=== PATIENT | female | born 1990 | race Caucasian/White ===

== ENCOUNTER 2018-02-04 21:22 | Emergency (ER) | payer OTHER ==
[2018-02-04 21:31] VITALS: BP 109/73
[2018-02-04] MEDS ORDERED: Tetan/Diph/Pertus SYR(Tdap)* 0.5 ML SYR(BOOSTRIX) use SYR IM ONE (21:39)
[2018-02-04] MEDS: Mupirocin 2% OINT* TUBE TOPICAL ONE ×2 (21:44→22:04)
--- NOTE | 2018-02-04 21:46 | UC ---
HPI BURN - HPI Summary HPI Summary: 27-year-old woman comes to clinic today with a chief complaint of burn to her right forearm. This happened at work just prior to arrival today. They did clean it and put some burn ointment on. Patient does not believe she is up-to- date on her tetanus. Initially the burn hurt quite a bit but by covering it did decrease the pain. No other injury. - History of Current Complaint Chief Complaint: UCBurn Stated Complaint: BURN ON ARM Time Seen by Provider: 02/04/18 21:33 Hx Last Menstrual Period: 01/27/18 Pain Intensity: 3 - Allergy/Home Medications Allergies/Adverse Reactions: Allergies Allergy/AdvReac Type Severity Reaction Status Date / Time peanut Allergy Itching Verified 02/04/18 21:30 soy Allergy Swelling Verified 02/04/18 21:30 Of Face,Lips,& Throat Home Medications: Home Medications NK [No Home Medications Reported] 02/04/18 [History Confirmed 02/04/18] PMH/Surg Hx/FS Hx/Imm Hx Previously Healthy: Yes - Surgical History Surgical History: Yes Surgery Procedure, Year, and Place: TONSILLECTOMY 2004 - Family History Known Family History: Positive: Non-Contributory - Social History Alcohol Use: Occasionally Substance Use Type: None Smoking Status (MU): Never Smoked Tobacco Review of Systems All Other Systems Reviewed And Are Negative: Yes Constitutional: Positive: Negative Skin: Positive: Other - SEE HPI Eyes: Positive: Negative ENT: Positive: Negative Respiratory: Positive: Negative Cardiovascular: Positive: Negative Gastrointestinal: Positive: Negative Motor: Positive: Negative Neurovascular: Positive: Negative Musculoskeletal: Positive: Negative Neurological: Positive: Negative Psychological: Positive: Negative Is Patient Immunocompromised?: No Physical Exam Triage Information Reviewed: Yes Appearance: Well-Appearing, No Pain Distress, Well-Nourished Vital Signs: Initial Vital Signs Temp 97.9 F 02/04/18 21:27 Pulse 66 02/04/18 21:27 Resp 16 02/04/18 21:27 BP 109/73 02/04/18 21:27 Pulse Ox 100 02/04/18 21:27 Vital Signs Reviewed: Yes Eye Exam: Normal Eyes: Positive: Conjunctiva Clear Neck exam: Normal Neck: Positive: Supple Respiratory: Positive: No respiratory distress Musculoskeletal Exam: Normal Musculoskeletal: Positive: Strength Intact, ROM Intact Neurological Exam: Normal Neurological: Positive: Alert, Muscle Tone Normal Psychological Exam: Normal Psychological: Positive: Age Appropriate Behavior Skin: Positive: Other - On the right forearm there is a burn that is 2 CM wide and 6 cm long. There are broken blisters on it. There is a second parallel burned that's 3 Cm long and 1 cm wide also with broken blister. Burn Calculation - Mucarabones Formula for Fluid Resuscitation Weight: 130 lb 24 -Hour Fluid Replacement: 0.0 Course/Dx Burn - Course Course Of Treatment: Patient was given her T tap here in clinic. Nonstick dressing was applied after cleaning the wound and placing mupirocin. She will change the dressing once to twice a day and changing the antibiotic ointment and follow-up with her doctor. - Diagnoses Provider Diagnosis: Second degree burn of right arm Discharge - Sign-Out/Discharge Documenting (check all that apply): Patient Departure All imaging exams completed and their final reports reviewed: No Studies - Discharge Plan Condition: Stable Disposition: HOME Patient Education Materials: Second Degree Burn (ED) Referrals: Jerilyn Frost MD [Primary Care Provider] - Ez Higginbotham MD [Medical Doctor] - Additional Instructions: FOLLOW UP WITH YOUR DOCTOR IF NOT COMPLETELY IMPROVED. YOU WERE GIVEN A TDAP (TETANUS/DIPTHERIA) IMMUNIZATION TODAY. GET RECHECKED FOR ANY WORSENING OF YOUR CONDITION OR QUESTIONS OR CONCERNS. - Billing Disposition and Condition Condition: STABLE Disposition: Home
== END 2018-02-04 22:05 | disposition home or self-care (01) ==
LOC: UCEAST 21:22
DX: T22.211A Burn of second degree of right forearm, initial encounter (principal); T31.0 Burns involving less than 10% of body surface; X08.8XXA Exposure to other specified smoke, fire and flames, initial encounter; Y92.89 Other specified places as the place of occurrence of the external cause
CPT/HCPCS: 16020; 90471; 90715; 99212; G0463

== ENCOUNTER 2018-04-29 14:36 | Emergency (ER) | payer OTHER ==
--- NOTE | 2018-04-29 15:52 | UC ---
Headache HPI - HPI Summary HPI Summary: 27 yo female presents with headache. She tells me that over the last 4-5 days she has been having a frontal headache. She says that about 1 week ago she had fatigue, body aches, and a subjective fever - thinks she may have had the flu, but improved in 2-3 days. About 4-5 days ago she developed a frontal headache that is persisting. She has been taking ibuprofen with mild relief, but headache comes right back. Over the last 2-3 days she has been feeling a "tightness" in her anterior chest and feeling that her heart is "fluttering". She denies fever, chills, sore throat, sinus symptoms, cough, SOB, chest pain, abdominal pain, n/v, dysuria. Denies PMHx. - History Of Current Complaint Chief Complaint: UCGeneralIllness Stated Complaint: HEADACHE Time Seen by Provider: 04/29/18 15:52 Hx Obtained From: Patient Hx Last Menstrual Period: 04/04/18 Onset/Duration: Sudden Onset Initially Headache Was: Moderate Currently Pain Is: Moderate Pain Intensity: 7 Pain Scale Used: 0-10 Numeric - Allergies/Home Medications Allergies/Adverse Reactions: Allergies Allergy/AdvReac Type Severity Reaction Status Date / Time peanut Allergy Itching Verified 04/29/18 15:15 soy Allergy Swelling Verified 04/29/18 15:15 Of Face,Lips,& Throat PMH/Surg Hx/FS Hx/Imm Hx - Additional Past Medical History Additional PMH: None - Surgical History Surgical History: Yes Surgery Procedure, Year, and Place: TONSILLECTOMY 2004 - Family History Known Family History: Positive: None - Social History Lives: With Family Alcohol Use: Occasionally Substance Use Type: None Smoking Status (MU): Never Smoked Tobacco - Immunization History Most Recent Tetanus Shot: GIVEN 02/04/18 Review of Systems All Other Systems Reviewed And Are Negative: Yes Constitutional: Positive: Negative Skin: Positive: Negative Eyes: Positive: Negative ENT: Positive: Negative Respiratory: Positive: Negative Cardiovascular: Positive: Palpitations Gastrointestinal: Positive: Negative Genitourinary: Positive: Negative Neurovascular: Positive: Negative Musculoskeletal: Positive: Negative Neurological: Positive: Headache Psychological: Positive: Negative Physical Exam - Summary Physical Exam Summary: GENERAL: NAD. WDWN. No pain distress. SKIN: No rashes, sores, ulcers, masses, lesions. HEENT: Head: AT/NC. Eyes: PERRLA. EOM intact. Conjunctiva clear without inflammation or discharge. Ears: Hearing grossly normal. TMs intact, no bulging, erythema, or edema. No hemotympanum Nose: Nasal mucosa pink and moist. NTTP maxillary and frontal sinus. Throat: Posterior oropharynx without exudates, erythema, or tonsillar enlargement. Uvula midline. NECK: Supple. Nontender. FROM CHEST: CTAB. No r/r/w. No accessory muscle use. Breathing comfortably and in no distress. CV: RRR. 2/6 systolic murmur appreciated heard best at left 3rd/4th intercostal. Pulses intact. Brisk cap refill. ABDOMEN: Soft. NTTP. Bowel sounds present MSK: FROM in B/L UEs and LEs with symmetric strength. NEURO: A&Ox3. 3 word recall, remote, recent memory, ability to follow 2-step directions, and attention intact. CN: II: Peripheral walsh intact. Vision normal. III, IV, : EOMI. No nystagmus. PERRLA. V: Sensations intact and symmetric. Opens mouth and clenches teeth. VII: No facial asymmetry. Forehead wrinkles. Grins, shuts eyes, frowns, puffs cheeks. VIII: Hearing intact to finger rub. IX, X: Swallows and coughs. Uvula midline. XI: Shrugs shoulders. Turns head against resistance. XII: No tongue deviation [id number] are intact. Gait with normal base. Romberg: maintains balance, no pronator drift. Normal speech. No facial drooping. PSYCH: Age appropriate behavior. Triage Information Reviewed: Yes Vital Signs: Initial Vital Signs Temp 98.5 F 04/29/18 15:11 Pulse 82 04/29/18 15:11 Resp 18 04/29/18 15:11 BP 100/67 04/29/18 15:11 Pulse Ox 100 04/29/18 15:11 Laboratory Tests 04/29/18 04/29/18 04/29/18 16:02 16:04 16:20 POC Glucose (mg/dL) 89 POC Urine Color Light yellow POC Urine Clarity Clear POC Urine pH 5.5 POC Ur Specif [place] <= 1.005 L POC Urine Protein Negative POC Ur Glucose (UA) Negative POC Urine Ketones Negative POC Urine Blood Trace-intact A POC Urine Nitrite Negative POC Urine Bilirubin Negative POC Urine Urobilinogen 0.2 POC U Leukocyte Esteras Negative POC Ur Test Negative Vital Signs Reviewed: Yes Headache Course/Dx - Course Course Of Treatment: EKG 66bpm NSR. No ST changes as read by Dr. Hall. CXR : IMPRESSION: NO EVIDENCE FOR ACTIVE CARDIOPULMONARY DISEASE. CT brain: IMPRESSION: NO EVIDENCE FOR ACUTE INTRACRANIAL ABNORMALITY. I discussed with the pt that her workup here is normal. She was given toradol IM for her headache and advised to f/u with her PCP for further eval of her symptoms if they continue and for her heart murmur appreciated today. - Differential Dx/Diagnosis Provider Diagnosis: Headache, Heart murmur Discharge - Sign-Out/Discharge Documenting (check all that apply): Patient Departure All imaging exams completed and their final reports reviewed: Yes - Discharge Plan Condition: Stable Disposition: HOME Patient Education Materials: Acute Headache (DC) Referrals: Jerilyn Frost MD [Primary Care Provider] - As Soon As Possible Additional Instructions: If you develop a fever, shortness of breath, chest pain, new or worsening symptoms - please call your PCP or go to the ED. Your work up today was normal and I do not see a clear cause of your headaches. Please continue to take ibuprofen 600mg every 6-8hours for your headache and schedule a follow up appointment with your primary doctor for further evaluation of your symptoms. - Billing Disposition and Condition Condition: STABLE Disposition: Home
[2018-04-29 17:28] LABS: Influenza A Molecular NEGATIVE (Negative); Influenza B Molecular NEGATIVE (Negative)
[2018-04-29] MEDS ORDERED: Ketorolac INJ* 60 MG/2 ML VIAL IM ONE (17:35)
[2018-04-29 17:51] VITALS: BP 114/73
== END 2018-04-29 17:49 | disposition home or self-care (01) ==
LOC: UCEAST 14:36
DX: R51 Headache (principal); R01.1 Cardiac murmur, unspecified; M79.10 Myalgia, unspecified site; R50.9 Fever, unspecified; R53.83 Other fatigue; Z91.010 Allergy to peanuts; Z91.018 Allergy to other foods
CPT/HCPCS: 70450; 71046; 81003; 84702; 93005; 96372; 99212; G0463; J1885

== ENCOUNTER 2018-05-02 09:40 | Emergency (ER) | payer OTHER ==
[2018-05-02 10:00] VITALS: BP 108/67
--- NOTE | 2018-05-02 10:31 | UC ---
Shortness of Breath HPI - HPI Summary HPI Summary: Pt returning to urgent care after her 04/29 evaluation w/ continued sob and now has trouble sleeping b/c of sob. Feels she has to use pillows to make it better. symptoms eventually resolve and she is able to fall asleep. sob sometimes occur during the day. No pattern to it. She states she had a serious allergy to soy but she does not think she's been exposed, her partner has not eaten it at any point and they do not have it in the home. No new allergen exposures or animal exposure. she denies wheezing, n/v, dizziness but does complain of a dull HURLEY, fogginess. denies recent trip or travel. - History of Current Complaint Chief Complaint: UCRespiratory Stated Complaint: SOB Time Seen by Provider: 05/02/18 10:09 Hx Obtained From: Patient Hx Last Menstrual Period: 03/29/18 Onset/Duration: Gradual Onset Aggrevating Factors: Recumbent Position Associated Signs & Symptoms: Negative: Wheezing, Chills, Nasal Congestion, Dizzy Related History: Similar Episode - on 04/29 but feels its worse. - Allergy/Home Medications Allergies/Adverse Reactions: Allergies Allergy/AdvReac Type Severity Reaction Status Date / Time peanut Allergy Itching Verified 05/02/18 09:51 soy Allergy Swelling Verified 05/02/18 09:51 Of Face,Lips,& Throat PMH/Surg Hx/FS Hx/Imm Hx Previously Healthy: Yes - Surgical History Surgical History: Yes Surgery Procedure, Year, and Place: TONSILLECTOMY 2004 - Family History Known Family History: Positive: None, Non-Contributory - Social History Alcohol Use: Occasionally Substance Use Type: None Smoking Status (MU): Never Smoked Tobacco - Immunization History Most Recent Tetanus Shot: GIVEN 02/04/18 Review of Systems All Other Systems Reviewed And Are Negative: Yes Constitutional: Positive: Fatigue Skin: Positive: Negative ENT: Negative: Sinus Congestion Respiratory: Positive: Shortness Of Breath, Other - sob worse when she lays down so needs pillows.. Negative: Cough Gastrointestinal: Positive: Negative Musculoskeletal: Negative: Calf Tenderness, Edema, Myalgia Neurological: Positive: Headache Psychological: Negative: Anxious Physical Exam Triage Information Reviewed: Yes Appearance: Well-Appearing, No Pain Distress Vital Signs: Initial Vital Signs Temp 99 F 02/28/19 09:51 Pulse 82 05/02/18 09:51 Resp 16 05/02/18 09:51 BP 108/67 05/02/18 09:51 Pulse Ox 100 05/02/18 09:51 Vital Signs Reviewed: Yes ENT: Positive: Pharynx normal, TMs normal, Uvula midline Neck: Positive: Supple, Nontender, No Lymphadenopathy. Negative: Nuchal Rigidity Respiratory: Positive: Chest non-tender, Lungs clear Cardiovascular Exam: Normal Cardiovascular: Positive: No Murmur Musculoskeletal: Positive: Other: - No LE edema or calf tenderness bilat. Neurological: Positive: Alert Psychological: Positive: Age Appropriate Behavior Skin: Negative: Rashes Shortness of Breath Dx - Course Course Of Treatment: Intermittent and Worsening SOB now w/ PND since her UC visit from 04/29. Not assoc. w/ exertion and worse at night. No wheezing or allergen association. No recent travel. Unclear etiology given normal exam, unclear pattern of sob. We repeated CXR to observe any changes and this was NL. Of note Urine hcg neg. on 04/29. Vitals are unremarkable and on exam no cyanosis or signs of resp. distress. good exam otherwise. EKG from 04/29 and today showed no progression or changes. There may be an element of anxiety related to this. This will need to be continued to be w/u outpatient. Until then CBC to r/o anemia and BMP to check renal function and electrolytes. Have advised her to go to ED for any worsening symptoms. - Differential Dx/Diagnosis Provider Diagnosis: PND (paroxysmal nocturnal dyspnea), SOB (shortness of breath) Discharge - Sign-Out/Discharge Documenting (check all that apply): Patient Departure All imaging exams completed and their final reports reviewed: Yes - Discharge Plan Condition: Good Disposition: HOME Patient Education Materials: Shortness of Breath (ED) Forms: *Work Release Referrals: Jerilyn Frost MD [Primary Care Provider] - Additional Instructions: The results of your blood test to show if you are anemic will be done tomorrow. Please call us to get these. Either way please make appointment with your primary care provider to continue the work up for your symptoms. Today your Chest Xray was again normal, as well as your EKG. It is unclear what is causing you symptoms but please go to ED if you have a sudden episode of Shortness of Breath. - Billing Disposition and Condition Condition: GOOD Disposition: Home - Attestation Statements Provider Attestation: I was available for consult. This patient was seen by the AMANDA. The patient was not presented to, seen by, or examined by me. -Alberto
[2018-05-02 13:31] LABS: ABS Basophils 0.1 10^3/ul (0-0.2); ABS Eosinophils 0.1 10^3/ul (0-0.6); ABS Monocytes 0.5 10^3/ul (0-0.8); ABS Neutrophils 3.2 10^3/ul (1.5-7.7); ABS Nucleated RBC 0 10^3/ul; Eosinophil % 1.5 %; Hematocrit 38 % (35-47); Hemoglobin 12.9 g/dl (12.0-16.0); Lymphocyte % 34.1 %; Mean Corpuscular HGB Conc 34 g/dl (31-36); Mean Corpuscular Hemoglobin 32 pg (27-31); Mean Corpuscular Volume 94 fL (80-97); Mean Platelet Volume 8.4 fL (7.4-10.4); Nucleated Red Blood Cells % 0; Platelet Count 256 10^3/ul (150-450); Red Blood Count 4.08 10^6/ul (4.00-5.40); Red Cell Distribution Width 12 % (10.5-15); White Blood Count 5.8 10^3/ul (3.5-10.8)
[2018-05-02 13:47] LABS: Calcium 9.9 mg/dL (8.6-10.3); Potassium 3.9 mmol/L (3.5-5.0)
[2018-05-02 13:53] LABS: BUN/Creatinine Ratio 10.6 (8-20); EGFR Non-African American 108.3 (>60)
== END 2018-05-02 11:10 | disposition home or self-care (01) ==
LOC: UCEAST 09:40
DX: R06.02 Shortness of breath (principal); R06.09 Other forms of dyspnea; Z91.010 Allergy to peanuts; Z91.018 Allergy to other foods
CPT/HCPCS: 36415; 71046; 80048; 85025; 93005; 99211; G0463

== ENCOUNTER 2018-06-11 08:00 | Emergency (ER) | payer OTHER ==
[2018-06-11 08:10] VITALS: BP 121/82
[2018-06-11] MEDS ORDERED: Ondansetron ODT TAB* 4 MG PO ONE (08:27)
[2018-06-11] MEDS ORDERED: Ketorolac INJ* 60 MG/2 ML VIAL IM ONE (08:29)
--- NOTE | 2018-06-11 08:48 | UC ---
Abdominal Pain Female HPI - HPI Summary HPI Summary: 1 WEEK OF CONSTANT NAUSEA. NO VOMITING OR DIARRHEA. NO FEVER. HAS ALSO HAD A CONSTANT FRONTAL HURLEY. NO VISUAL DISTURBANCES. IS NOT NORMALLY A HURLEY PERSON. IBUPROFEN NOT HELPING. STATES SHE HAS BEEN HYDRATING WELL. NO URINARY SX. DENIES ANY CHANCE OF . - History of Current Complaint Chief Complaint: UCGeneralIllness Stated Complaint: HEADACHE FATIGUE NAUSEA Time Seen by Provider: 06/11/18 08:11 Hx Obtained From: Patient Hx Last Menstrual Period: 06/07/18 Onset/Duration: Gradual Onset, Lasting Days, Still Present Timing: Constant Severity Initially: Moderate Severity Currently: Moderate Pain Intensity: 4 Pain Scale Used: 0-10 Numeric Location: Diffuse Radiates: No Aggravating Factor(s): Nothing Alleviating Factor(s): Nothing Associated Signs and Symptoms: Positive: Nausea. Negative: Fever, Urinary Symptoms, Vomiting, Diarrhea Allergies/Adverse Reactions: Allergies Allergy/AdvReac Type Severity Reaction Status Date / Time peanut Allergy Itching Verified 06/11/18 08:09 soy Allergy Swelling Verified 06/11/18 08:09 Of Face,Lips,& Throat PMH/Surg Hx/FS Hx/Imm Hx Previously Healthy: Yes - Surgical History Surgical History: Yes Surgery Procedure, Year, and Place: TONSILLECTOMY 2004 - Family History Known Family History: Positive: None, Non-Contributory - Social History Alcohol Use: Occasionally Substance Use Type: None Smoking Status (MU): Never Smoked Tobacco - Immunization History Most Recent Tetanus Shot: GIVEN 02/04/18 Review of Systems All Other Systems Reviewed And Are Negative: Yes Constitutional: Positive: Negative Respiratory: Positive: Negative Cardiovascular: Positive: Negative Gastrointestinal: Positive: Nausea. Negative: Vomiting, Diarrhea Neurological: Positive: Headache Physical Exam Triage Information Reviewed: Yes Appearance: Well-Appearing, No Pain Distress, Well-Nourished Vital Signs: Initial Vital Signs Temp 97.8 F 06/11/18 08:06 Pulse 74 06/11/18 08:06 Resp 18 06/11/18 08:06 BP 121/82 06/11/18 08:06 Pulse Ox 100 06/11/18 08:06 Laboratory Tests 06/11/18 06/11/18 08:33 08:36 POC Urine Color Light yellow POC Urine Clarity Clear POC Urine pH 6.5 POC Ur Specif [place] 1.015 POC Urine Protein Negative POC Ur Glucose (UA) Negative POC Urine Ketones Negative POC Urine Blood 1+ A POC Urine Nitrite Negative POC Urine Bilirubin Negative POC Urine Urobilinogen 0.2 POC U Leukocyte Esteras Trace A POC Ur Test Negative Vital Signs Reviewed: Yes Eyes: Positive: Conjunctiva Clear ENT: Positive: Hearing grossly normal, Pharynx normal, TMs normal Neck: Positive: Supple, Nontender, No Lymphadenopathy Respiratory Exam: Normal Cardiovascular Exam: Normal Abdomen Description: Positive: Nontender, Soft. Negative: CVA Tenderness (R), CVA Tenderness (L), Distended, Guarding Bowel Sounds: Positive: Present Musculoskeletal: Positive: No Edema Neurological: Positive: Alert Psychological: Positive: Age Appropriate Behavior Skin: Negative: Rashes Re-Evaluation - Re-Evaluation First Eval Re-Evaluation Time: 09:15 - PT STATES NO REAL IMPROVEMENT AFTER TORADOL AND ZOFRAN. Change: Unchanged Abd Pain Female Course/Dx - Course Course Of Treatment: PATIENT WITH 1 WEEK OF NAUSEA AND FRONTAL/SINUS HEADACHE. NO FEVER, NASAL DISCHARGE, COUGH. CBC AND CMP DRAWN TODAY. NO IMPROVEMENT AFTER TORADOL AND ZOFRAN. DISCUSSED WITH PATIENT TRANSFER TO ER VERSUS OUTPATIENT FOLLOW-UP WITH PCP. PATIENT OPTS FOR CAREFUL OBSERVATION AT HOME AND PCP FOLLOW-UP IF NEEDED WHICH I THINK IS REASONABLE. SHE DECLINES PRESCRIPTION FOR ZOFRAN TODAY. URINE WILL BE SENT FOR CULTURE TO ENSURE NO INFECTION. STATES SHE WILL GO TO THE ER WITHOUT FAIL IF HER SYMPTOMS WORSEN. - Differential Dx/Diagnosis Provider Diagnosis: Nausea, Headache Discharge - Sign-Out/Discharge Documenting (check all that apply): Patient Departure All imaging exams completed and their final reports reviewed: No Studies - Discharge Plan Condition: Stable Disposition: HOME Patient Education Materials: Abdominal Pain (ED) Referrals: Jerilyn Frost MD [Primary Care Provider] - 1 Week Additional Instructions: UNCLEAR ETIOLOGY OF YOUR SYMPTOMS TODAY. BLOOD COUNT AND METABOLIC PANEL DRAWN. WE WILL CALL YOU WITH ANY ABNORMAL RESULTS. WE WILL SEND YOUR URINE FOR TESTING TO ENSURE NO INFECTION. STAY WELL HYDRATED. OTC MEDS NEEDED. FOLLOW-UP WITH YOUR PCP WITHIN A WEEK. GO TO THE ER WITHOUT FAIL IF YOU DEVELOP WORSENING PAIN , FEVER, BLOODY DIARRHEA/VOMITUS OR ANY OTHER CONCERNING SYMPTOMS. - Billing Disposition and Condition Condition: STABLE Disposition: Home
[2018-06-11 11:14] LABS: ABS Basophils 0 10^3/ul (0-0.2); ABS Eosinophils 0.2 10^3/ul (0-0.6); ABS Lymphocytes 2.4 10^3/ul (1.0-4.8); ABS Monocytes 0.6 10^3/ul (0-0.8); ABS Neutrophils 2.4 10^3/ul (1.5-7.7); ABS Nucleated RBC 0 10^3/ul; Eosinophil % 3.4 %; Hematocrit 39 % (33-41); Lymphocyte % 42.9 %; Mean Corpuscular HGB Conc 34 g/dL (31-36); Mean Corpuscular Hemoglobin 32 pg (27-31); Mean Corpuscular Volume 94 fL (80-97); Mean Platelet Volume 8.3 fL (7.4-10.4); Nucleated Red Blood Cells % 0.1; Platelet Count 290 10^3/uL (150-450); Red Blood Count 4.12 10^6 /uL (3.70-4.87); Red Cell Distribution Width 12 % (10.5-15); White Blood Count 5.6 10^3/uL (3.5-10.8)
[2018-06-11 11:30] LABS: Albumin 4.5 g/dL (3.2-5.2); Albumin/Globulin Ratio 2.3 (1-3); BUN/Creatinine Ratio 14.8 (8-20); Calcium 9.5 mg/dL (8.6-10.3); EGFR African American 142.4 (>60); EGFR Non-African American 117.7 (>60); Potassium 4.1 mmol/L (3.5-5.0); Total Bilirubin 0.5 mg/dL (0.2-1.0); Total Protein 6.5 g/dL (6.4-8.9)
== END 2018-06-11 09:29 | disposition home or self-care (01) ==
LOC: UCEAST 08:00
DX: R11.0 Nausea (principal); R51 Headache; R53.83 Other fatigue; Z91.010 Allergy to peanuts; Z91.018 Allergy to other foods
CPT/HCPCS: 36415; 80053; 81003; 84702; 85025; 87086; 96372; 99212; A9270-GY; G0463; J1885